=== PATIENT | male | born 1985 | race Caucasian/White ===

== ENCOUNTER 2017-11-09 20:55 | Emergency (ER) | payer OTHER ==
[~2017-11-09] VITALS: Ht 175.3 cm; Wt 65.3 kg
[2017-11-09 21:05] VITALS: Ht 175.3 cm; Wt 65.3 kg
[2017-11-09 23:36] LABS: CALCIUM 8.8 mg/dL (8.5-10.1); CARBON DIOXIDE 28.8 mmol/L (21-32); CHLORIDE SERUM 104 mmol/L (98-107); CREATININE SERUM 0.9 mg/dL (0.7-1.3); GFR1 > 60 mL/min; GLUCOSE SERUM 92 mg/dL (74-106); POTASSIUM SERUM 4.6 mmol/L (3.5-5.1); SODIUM SERUM 141 mmol/L (136-145)
[2017-11-09 23:39] LABS: BASOPHIL % 0.4 % (0-2); PLATELET COUNT 237 x10^3mcL (130-400); RED CELL DISTRIBUTION WIDTH 13.7 % (11.5-14.5)
[2017-11-09 23:41] LABS: ALBUMIN 3.8 g/dL (3.4-5.0); ALKALINE PHOSPHATASE 61 U/L (46-116); ALT/SGPT 43 U/L (16-63); AST/SGOT 23 U/L (15-37); BILIRUBIN TOTAL 0.3 mg/dL (0.20-1.00); TOTAL PROTEIN, SERUM 7.1 g/dL (6.4-8.2)
[2017-11-10 00:50] VITALS: BP 125/58
== END 2017-11-10 00:52 | disposition home or self-care (01) ==
LOC: ED 20:55
PROVIDERS: Emergency Medicine
DX: H81.10 Benign paroxysmal vertigo, unspecified ear (principal)
CPT/HCPCS: 36415; J8597

== ENCOUNTER 2020-11-01 18:51 | Emergency (ER) | payer OTHER ==
[~2020-11-01] VITALS: Ht 175.3 cm; Wt 65.8 kg
[2020-11-01 18:55] VITALS: Ht 175.3 cm; Wt 65.8 kg
[2020-11-01 19:55] LABS: PLATELET COUNT 284 x10^3mcL (152-348); RED CELL DISTRIBUTION WIDTH 14.1 % (12.1-16.2)
[2020-11-01 20:11] LABS: CALCIUM 9.8 mg/dL (8.5-10.1); CARBON DIOXIDE 31.9 mmol/L (21-32); CHLORIDE SERUM 103 mmol/L (98-107); CREATININE SERUM 0.9 mg/dL (0.7-1.3); GFR1 > 60 mL/min; GLUCOSE SERUM 83 mg/dL (74-106); POTASSIUM SERUM 4.4 mmol/L (3.5-5.1); SODIUM SERUM 140 mmol/L (136-145)
[2020-11-01 20:16] LABS: ALBUMIN 4.3 g/dL (3.4-5.0); ALKALINE PHOSPHATASE 85 U/L (46-116); ALT/SGPT 34 U/L (16-63); AST/SGOT 20 U/L (15-37); BILIRUBIN TOTAL 0.4 mg/dL (0.20-1.00); TOTAL PROTEIN, SERUM 7.8 g/dL (6.4-8.2)
[2020-11-01 22:20] VITALS: BP 111/73
== END 2020-11-01 22:20 | disposition home or self-care (01) ==
LOC: ED 18:51
PROVIDERS: Emergency Medicine
DX: K64.9 Unspecified hemorrhoids (principal); J44.9 Chronic obstructive pulmonary disease, unspecified
CPT/HCPCS: Q9967